=== PATIENT | female | born 1975 | race Two or more races ===

== ENCOUNTER 2019-07-18 16:54 | Emergency (ER) | payer OTHER ==
[~2019-07-18] VITALS: Ht 172.7 cm; Wt 59.0 kg
[2019-07-18] MEDS ORDERED: HYDROCODONE/APAP 5-325MG TABLET PO ONE (17:45)
[2019-07-18] MEDS ORDERED: HYDROCODONE/APAP 5-325MG TABLET ONE (17:49)
--- NOTE | 2019-07-18 18:11 | NUR ---
Patient discharged to home in stable condition. Written and verbal after care instructions given. Patient verbalizes understanding of instructions.
[2019-07-18 18:12] VITALS: BP 127/76
== END 2019-07-18 18:13 | disposition home or self-care (01) ==
LOC: ER 17:03
DX: L03.012 Cellulitis of left finger (principal); E11.9 Type 2 diabetes mellitus without complications; Z88.1 Allergy status to other antibiotic agents
CPT/HCPCS: A4663

== ENCOUNTER 2019-07-27 17:52 | Inpatient (IN) | payer OTHER ==
[~2019-07-27] VITALS: Ht 172.7 cm; Wt 59.1 kg
--- NOTE | 2019-07-27 18:33 | NUR ---
Dr Puri at the bedside for MSE.
[2019-07-27] MEDS ORDERED: VANCOMYCIN IV 200 ML ONE (19:28)
[2019-07-27] MEDS ORDERED: VANCOMYCIN IV 1,000 MG in IV DEXTROSE 5% 250 ML IV ONE (19:30)
--- NOTE | 2019-07-27 19:35 | NUR ---
Started 22 gauge peripheral iv in the left AC, well tolerated, no blood lost, no signs of infiltration.
[2019-07-27 19:48] LABS: BASOPHILS % (AUTO) 0.4 % (0.0-2.0); EOSINOPHILS # (AUTO) 0.1 K/uL (0.0-0.7); EOSINOPHILS % (AUTO) 1.7 % (0.0-7.0); HEMATOCRIT 26.2 % (31.2-41.9); HEMOGLOBIN 8.6 g/dL (10.9-14.3); LYMPHOCYTES # (AUTO) 1.4 K/uL (20.0-40.0); LYMPHOCYTES % (AUTO) 17.2 % (20.5-51.5); MEAN CORPUSCULAR HGB CONC 33 g/dL (32.3-35.6); MEAN CORPUSCULAR VOLUME 90.9 fL (75.5-95.3); MONOCYTES # (AUTO) 0.3 K/uL (2.0-10.0); MONOCYTES % (AUTO) 3.8 % (0.0-11.0); NEUTROPHILS # (AUTO) 6.2 K/uL (1.8-8.9); NEUTROPHILS % (AUTO) 76.9 % (38.5-71.5); PLATELET COUNT (AUTO) 263 K/uL (179-408); RED BLOOD CELL COUNT(AUTO) 2.89 MIL/uL (3.63-4.92); WHITE BLOOD COUNT (AUTO) 8.1 K/uL (3.8-11.8)
[2019-07-27 20:01] LABS: BILIRUBIN,DIRECT 0.1 mg/dL (0.0-0.2); BILIRUBIN,TOTAL 0.2 mg/dL (0.2-1.0); CREATININE 5.6 mg/dL (0.6-1.3); POTASSIUM 5.2 mmol/L (3.5-5.1); TOTAL PROTEIN, SERUM 6.6 g/dL (6.4-8.2)
--- NOTE | 2019-07-27 20:10 | NUR ---
Informed Dr. Puri of critical blood glucose level of 363. Informed pt manages diabetes with insulin.
[2019-07-27] MEDS ORDERED: ONDANSETRON 4 MG/2 ML VIAL IV PRN (21:15)
[2019-07-27] MEDS ORDERED: MAGNESIUM HYDROXIDE 30 ML LIQUID UDC PO PRN (21:15)
[2019-07-27] MEDS ORDERED: ACETAMINOPHEN 325 MG TABLET PO PRN (21:15)
[2019-07-27] MEDS ORDERED: DEXTROSE 50% 50 ML DISP.SYRIN IV PRN (21:15)
[2019-07-27] MEDS ORDERED: MORPHINE SULFATE 2 MG/1 ML DISP.SYRIN IV PRN (21:15)
[2019-07-27] MEDS ORDERED: Z GUARD REMEDY PASTE 57 GM TUBE TOP PRN (21:15)
--- NOTE | 2019-07-27 21:20 | NUR ---
Report given to Jazmin STYLES.
--- NOTE | 2019-07-27 21:30 | NUR ---
Transferred patient to room 305.
[2019-07-27 22:00] VITALS: BP 150/85
--- NOTE | 2019-07-27 22:00 | NUR ---
Received patient from ER. Dx: cellulitis of left 5th digit. Patient A/Ox4, ambulates with steady gait. No signs of acute distress noted. Vitals WNL. IV on the left AC is intact and patent. Noted swelling to left pinky, no drainage noted. Patient received Vanco in ER and has an order to start Rocephin. Patient oriented to room and unit, safety measures initiated. Bed is low and locked, call light within reach. Will continue to monitor.
[2019-07-27] MEDS: IV NS 1000 ML 1,000 ML IV PRN (22:09)
[2019-07-27] MEDS: BLOOD SUGAR DIAGNOSTIC 1 EACH STRIP VI SCH (22:28)
[2019-07-27] MEDS: INSULIN REGULAR, HUMAN 300 UNIT/3 ML VIAL SQ PRN (22:28)
--- NOTE | 2019-07-27 22:30 | NUR ---
Glucose in ER was 363, rechecked BS and was 180, gave coverage and food. Will continue to monitor.
[2019-07-27] MEDS ORDERED: CEFTRIAXONE 1 G VIAL ONE (22:33)
[2019-07-27] MEDS: CEFTRIAXONE 2 G in IV DEXTROSE 5% 100 ML IV SCH (22:42)
[2019-07-28] MEDS: HYDROCODONE/APAP 5-325MG TABLET PO PRN (05:02)
[2019-07-28 05:05] VITALS: BP 155/90
[2019-07-28] MEDS: BLOOD SUGAR DIAGNOSTIC 1 EACH STRIP VI SCH ×4 (06:46→20:39)
[2019-07-28 07:41] LABS: BILIRUBIN,TOTAL 0.1 mg/dL (0.2-1.0); CREATININE 5.2 mg/dL (0.6-1.3); MAGNESIUM 2.1 mg/dL (1.8-2.4); PHOSPHOROUS 4.3 mg/dL (2.5-4.9); POTASSIUM 4.1 mmol/L (3.5-5.1); TOTAL PROTEIN, SERUM 5.6 g/dL (6.4-8.2)
[2019-07-28 07:49] LABS: BASOPHILS % (AUTO) 0.7 % (0.0-2.0); EOSINOPHILS # (AUTO) 0.2 K/uL (0.0-0.7); EOSINOPHILS % (AUTO) 2.6 % (0.0-7.0); HEMATOCRIT 24.7 % (31.2-41.9); HEMOGLOBIN 8.2 g/dL (10.9-14.3); LYMPHOCYTES # (AUTO) 1.3 K/uL (20.0-40.0); MEAN CORPUSCULAR HGB CONC 33 g/dL (32.3-35.6); MEAN CORPUSCULAR VOLUME 90.2 fL (75.5-95.3); MONOCYTES # (AUTO) 0.3 K/uL (2.0-10.0); MONOCYTES % (AUTO) 5.7 % (0.0-11.0); NEUTROPHILS # (AUTO) 4.2 K/uL (1.8-8.9); PLATELET COUNT (AUTO) 239 K/uL (179-408); RED BLOOD CELL COUNT(AUTO) 2.74 MIL/uL (3.63-4.92); WHITE BLOOD COUNT (AUTO) 6.1 K/uL (3.8-11.8)
[2019-07-28 08:00] VITALS: BP 175/90
[2019-07-28 08:38] LABS: THYROID STIMULATING HORMONE 2.117 mIU/mL (0.358-3.740)
--- NOTE | 2019-07-28 09:14 | NUR ---
CLINICAL PHARMACY NOTE: VANCOMYCIN PHARMACY TO DOSE Subjective: To start vancomycin in this 43 y/o female for indication of empiric therapy (cellulitis) Objective: weight 59kg height 172cm BUN/SCR 43/5.2 (CKD, no HD yet) wbc 6.1 temp 98 1gm given in ER 07/26 @2000 Vanco random with am labs: 14 Assessment/Plan As pt not on HD yet, will dose per level for now for reduce renal function. Per today's random, will dose another 1gm vanco today at 1000. Next random due tomorrow with am labs. Will check and re-dose as needed. Will also check for HD status. Will follow
--- NOTE | 2019-07-28 09:25 | NUR ---
informed sharif that patient is hypertensive this morning. patient has history of HTN no bp meds ordered. sharif to come see the patient prior to med orders.
[2019-07-28] MEDS ORDERED: VANCOMYCIN IV 1,000 MG in IV DEXTROSE 5% 250 ML IV ONE (10:00)
--- NOTE | 2019-07-28 10:00 | NUR ---
sharif in the unit to see patient. refer to doctor jaja for renal function. doctor jaja in the unit at this time and will consult with the patient.
[2019-07-28 11:44] VITALS: BP 168/96
[2019-07-28 16:47] VITALS: BP 151/89
[2019-07-28 16:48] LABS: *BILIRUBIN,URIN NEGATIVE (NEGATIVE); *CLARITY,URINE CLEAR (CLEAR); *COLOR,URINE YELLOW (YELLOW); *KETONES,URINE NEGATIVE (NEGATIVE); *UROBILINOGEN,URINE 0.2 E.U./dl (NORMAL); LEUKOCYTE ESTERASE ,URINE NEGATIVE (NEGATIVE); NITRITE, URINE NEGATIVE (NEGATIVE); UGLUCOSE TRACE (NEGATIVE)
[2019-07-28 16:58] LABS: *BLOOD, URINE TRACE (NEGATIVE)
[2019-07-28 17:08] LABS: BACTERIA,URINE NONE SEEN /HPF (NONE SEEN); SQUAMOUS EPITHELIAL CELL,UR FEW /HPF (NONE SEEN); WBC,URINE 0-3 /HPF (0-3)
[2019-07-28 17:33] LABS: *CREATININE,URINE 44.6 mg/dL (30-125); *URINE TOTAL PROTEIN RANDOM 366.9 mg/dL (<150/24HR)
[2019-07-28] MEDS: IV NS 1000 ML 1,000 ML IV PRN (17:52)
--- NOTE | 2019-07-28 20:00 | NUR ---
RECEIVED PATIENT AWAKE IN BED. A/O X4. WATCHING TV IN BED. DENIES PAIN OR DISCOMFORT IN LEFT PINKY FINGER. SWELLING NOTED. IVF INFUSING WELL TO LEFT AC #22 GAUGE. NO RESP. DISTRESS NOTED. VSS. CALL LIGHT IN REACH. ALL NEEDS ATTENDED. WILL CONTINUE TO MONITOR.
[2019-07-28 20:22] VITALS: BP 154/80
[2019-07-28] MEDS: INSULIN REGULAR, HUMAN 300 UNIT/3 ML VIAL SQ PRN (20:41)
[2019-07-28] MEDS: CEFTRIAXONE 2 G in IV DEXTROSE 5% 100 ML IV SCH (20:55)
[2019-07-29] MEDS: IV NS 1000 ML 1,000 ML IV PRN ×2 (00:29→10:49)
[2019-07-29] MEDS: HYDROCODONE/APAP 5-325MG TABLET PO PRN (04:03)
[2019-07-29 06:13] LABS: BASOPHILS % (AUTO) 0.7 % (0.0-2.0); EOSINOPHILS # (AUTO) 0.3 K/uL (0.0-0.7); EOSINOPHILS % (AUTO) 3.9 % (0.0-7.0); HEMATOCRIT 24.9 % (31.2-41.9); HEMOGLOBIN 8.2 g/dL (10.9-14.3); LYMPHOCYTES # (AUTO) 1.7 K/uL (20.0-40.0); LYMPHOCYTES % (AUTO) 22.3 % (20.5-51.5); MEAN CORPUSCULAR HEMOGLOBIN 29.6 uug (24.7-32.8); MEAN CORPUSCULAR HGB CONC 33 g/dL (32.3-35.6); MEAN CORPUSCULAR VOLUME 89.6 fL (75.5-95.3); MONOCYTES # (AUTO) 0.3 K/uL (2.0-10.0); MONOCYTES % (AUTO) 4.1 % (0.0-11.0); NEUTROPHILS # (AUTO) 5.1 K/uL (1.8-8.9); PLATELET COUNT (AUTO) 240 K/uL (179-408); RED BLOOD CELL COUNT(AUTO) 2.78 MIL/uL (3.63-4.92); WHITE BLOOD COUNT (AUTO) 7.5 K/uL (3.8-11.8)
--- NOTE | 2019-07-29 06:31 | NUR ---
PATIENT RESTING IN BED. SLEPT AT SMALL INTERVALS THROUGHOUT THE NIGHT. NO C/O PAIN AT THIS TIME. PREVIOUSLY GIVEN NORCO FOR PAIN AT 0405. EFFECTIVE, VSS. IVF INFUSING WELL TO RIGHT FA #22. CALL LIGHT IN REACH. ALL NEEDS ATTENDED. WILL CONTINUE TO MONITOR AND ASSESS.
[2019-07-29 06:35] LABS: BILIRUBIN,TOTAL 0.1 mg/dL (0.2-1.0); MAGNESIUM 1.9 mg/dL (1.8-2.4); PHOSPHOROUS 4.4 mg/dL (2.5-4.9); POTASSIUM 4.3 mmol/L (3.5-5.1); TOTAL PROTEIN, SERUM 5.6 g/dL (6.4-8.2); VANCOMYCIN,RANDOM 23.2 ug/mL (18.0-26.0)
[2019-07-29] MEDS: BLOOD SUGAR DIAGNOSTIC 1 EACH STRIP VI SCH ×4 (06:38→20:32)
[2019-07-29 06:49] VITALS: BP 155/86
--- NOTE | 2019-07-29 07:36 | NUR ---
CLINICAL PHARMACY NOTE: VANCOMYCIN PHARMACY TO DOSE Subjective: To continue vancomycin in this 43 y/o female for indication of empiric therapy (cellulitis) Objective: weight 59kg height 172cm BUN/SCR 47/5.0 (CKD, no HD yet) wbc 7.5 temp 98.1 Vanco random with am labs on 3: 14 Vanco random with am labs on 07/28: 23.2 Assessment/Plan As pt not on HD yet, will dose per level for now for reduce renal function. Per today's random of 23.2 mcg/ml, no dose will be due today. Next random due tomorrow with am labs. Will check and re-dose as needed. Will also check for HD status. Will follow
[2019-07-29] MEDS: INSULIN REGULAR, HUMAN 300 UNIT/3 ML VIAL SQ PRN ×4 (08:52→20:40)
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
[2019-07-29 11:23] VITALS: BP 149/79
[2019-07-29 15:16] VITALS: BP 142/76
--- NOTE | 2019-07-29 18:28 | NUR ---
Patient calm and comfortable through out shift with no signs of distress; patient medication compliant ; patient with stable vital signs and report given to oncoming nurse.
--- NOTE | 2019-07-29 19:44 | NUR ---
Received patient awake and alert. Patient shows no signs or symptoms of distress at this time. IV patent running NS @ 75cc/hr. Bed set to lowest position. Call light within reach. Will continue to monitor patient.
[2019-07-29] MEDS: CEFTRIAXONE 2 G in IV DEXTROSE 5% 100 ML IV SCH (20:26)
[2019-07-29 21:04] VITALS: BP 179/85
[2019-07-29] MEDS ORDERED: CLONIDINE HCL 0.2 MG TABLET PO ONE (21:15)
[2019-07-29] MEDS ORDERED: CLONIDINE HCL 0.1 MG TABLET PO PRN (21:15)
--- NOTE | 2019-07-29 21:45 | NUR ---
2100 - Blood pressure is 179/85 and pulse 69. Patient denies having any chest pain, headache or shortness of breath at this time. Patient does not have any routine or PRN meds for blood pressure at this time. RANJEET Connelly notified of patient blood pressure. Received orders. 2130 - Catapres given as per MD order. Will continue to monitor patient.
--- NOTE | 2019-07-29 22:45 | NUR ---
Blood pressure rechecked and is 150/83 and pulse is 89. No further orders. Patient reports feeling better. Will continue to monitor patient.
[2019-07-29 22:47] VITALS: BP 150/83
[2019-07-30] MEDS: IV NS 1000 ML 1,000 ML IV PRN ×2 (01:09→16:08)
[2019-07-30 05:04] VITALS: BP 152/81
[2019-07-30 06:00] LABS: BASOPHILS % (AUTO) 0.5 % (0.0-2.0); EOSINOPHILS # (AUTO) 0.3 K/uL (0.0-0.7); EOSINOPHILS % (AUTO) 3.7 % (0.0-7.0); HEMATOCRIT 24.6 % (31.2-41.9); LYMPHOCYTES # (AUTO) 1.5 K/uL (20.0-40.0); LYMPHOCYTES % (AUTO) 21.1 % (20.5-51.5); MEAN CORPUSCULAR HEMOGLOBIN 29.5 uug (24.7-32.8); MEAN CORPUSCULAR HGB CONC 33 g/dL (32.3-35.6); MEAN CORPUSCULAR VOLUME 90.6 fL (75.5-95.3); MONOCYTES # (AUTO) 0.4 K/uL (2.0-10.0); MONOCYTES % (AUTO) 5.3 % (0.0-11.0); NEUTROPHILS # (AUTO) 4.9 K/uL (1.8-8.9); NEUTROPHILS % (AUTO) 69.4 % (38.5-71.5); PLATELET COUNT (AUTO) 234 K/uL (179-408); RED BLOOD CELL COUNT(AUTO) 2.72 MIL/uL (3.63-4.92)
[2019-07-30 06:11] LABS: CREATININE 4.9 mg/dL (0.6-1.3); POTASSIUM 4.6 mmol/L (3.5-5.1); VANCOMYCIN,RANDOM 16.6 ug/mL (18.0-26.0)
[2019-07-30] MEDS: BLOOD SUGAR DIAGNOSTIC 1 EACH STRIP VI SCH ×4 (06:34→20:26)
--- NOTE | 2019-07-30 07:18 | NUR ---
Patient shows no signs or symptoms of distress at this time. Call light within reach. Bed set to lowest position. Endorsed patient to AM nurse in stable condition.
[2019-07-30] MEDS: INSULIN REGULAR, HUMAN 300 UNIT/3 ML VIAL SQ PRN ×4 (07:51→20:30)
--- NOTE | 2019-07-30 07:58 | NUR ---
CLINICAL PHARMACY NOTE: VANCOMYCIN PHARMACY TO DOSE Subjective: To continue vancomycin in this 43 y/o female for indication of empiric therapy (cellulitis) Objective: weight 59kg height 172cm BUN/SCR 47/4.9 (CKD, no HD yet) wbc 7 temp 97.8 Vanco random with am labs on 07/27: 14 Vanco random with am labs on 07/28: 23.2 Vanco random with am labs on 07/29: 16.6 Assessment/Plan As pt not on HD yet, will dose per level for now for reduce renal function. Per today's random of 16.6 mcg/ml, will give vanco 1gm IVPB x1 today at 0800. Next random due on 07/31 with am labs. Will check and re-dose as needed. Will also check for HD status. Will follow
[2019-07-30] MEDS ORDERED: VANCOMYCIN IV 1,000 MG in IV DEXTROSE 5% 250 ML IV ONE (08:00)
[2019-07-30 09:09] LABS: A/G RATIO 0.9 (0.7-1.7); ALBUMIN 2.4 g/dL (2.9-4.4); ALPHA-1-GLOBULIN 0.2 g/dL (0.0-0.4); ALPHA-2-GLOBULIN 0.8 g/dL (0.4-1.0); BETA GLOBULIN 0.8 g/dL (0.7-1.3); GAMMA GLOBULIN 0.9 g/dL (0.4-1.8); GLOBULIN, TOTAL 2.7 g/dL (2.2-3.9); M-SPIKE Not Observed g/dL (Not Observed)
[2019-07-30 11:28] VITALS: BP 143/77
[2019-07-30 16:25] VITALS: BP 146/75
--- NOTE | 2019-07-30 19:30 | NUR ---
Received patient awake and alert. Patient shows no signs or symptoms of distress at this time. Patient denies having any pain at this time. Call light within reach. Bed set to lowest position. Will continue to monitor patient.
[2019-07-30 20:00] VITALS: BP 138/77
[2019-07-30] MEDS: CEFTRIAXONE 2 G in IV DEXTROSE 5% 100 ML IV SCH (20:21)
[2019-07-31 04:00] VITALS: BP 172/91
[2019-07-31 05:39] LABS: POTASSIUM 4.7 mmol/L (3.5-5.1)
[2019-07-31 06:04] LABS: BASOPHILS # (AUTO) 0.1 K/uL (0.0-8.0); BASOPHILS % (AUTO) 0.7 % (0.0-2.0); EOSINOPHILS # (AUTO) 0.3 K/uL (0.0-0.7); EOSINOPHILS % (AUTO) 4.1 % (0.0-7.0); HEMATOCRIT 23.5 % (31.2-41.9); HEMOGLOBIN 7.8 g/dL (10.9-14.3); LYMPHOCYTES # (AUTO) 1.4 K/uL (20.0-40.0); LYMPHOCYTES % (AUTO) 19.4 % (20.5-51.5); MEAN CORPUSCULAR HEMOGLOBIN 30.1 uug (24.7-32.8); MEAN CORPUSCULAR HGB CONC 33 g/dL (32.3-35.6); MEAN CORPUSCULAR VOLUME 90.9 fL (75.5-95.3); MONOCYTES # (AUTO) 0.4 K/uL (2.0-10.0); MONOCYTES % (AUTO) 5.7 % (0.0-11.0); NEUTROPHILS # (AUTO) 5.1 K/uL (1.8-8.9); NEUTROPHILS % (AUTO) 70.1 % (38.5-71.5); PLATELET COUNT (AUTO) 222 K/uL (179-408); RED BLOOD CELL COUNT(AUTO) 2.59 MIL/uL (3.63-4.92); WHITE BLOOD COUNT (AUTO) 7.4 K/uL (3.8-11.8)
--- NOTE | 2019-07-31 06:18 | NUR ---
PRN Catapres given for BP 172/91, BP is now 150/79.
[2019-07-31] MEDS: BLOOD SUGAR DIAGNOSTIC 1 EACH STRIP VI SCH ×2 (06:27→12:21)
[2019-07-31] MEDS: IV NS 1000 ML 1,000 ML IV PRN (06:58)
--- NOTE | 2019-07-31 07:00 | NUR ---
TOLERATING IV ANTIBIOTIC. FINGER STILL SWOLLEN BUT PATIENT SAID ABLE TO BEND A LITTLE BIT. AFEBRILE
[2019-07-31] MEDS: INSULIN REGULAR, HUMAN 300 UNIT/3 ML VIAL SQ PRN ×2 (08:12→12:23)
--- NOTE | 2019-07-31 08:13 | NUR ---
seen by hospitalist for follow-up see notes
--- NOTE | 2019-07-31 08:54 | NUR ---
CLINICAL PHARMACY NOTE: VANCOMYCIN PHARMACY TO DOSE Subjective: To continue vancomycin in this 43 y/o female for indication of empiric therapy (cellulitis) Objective: weight 59kg height 172cm BUN/SCR 58/5.0 (CKD, no HD yet) wbc 7.4 temp 98.3 Vanco random with am labs on 07/27: 14 Vanco random with am labs on 07/28: 23.2 Vanco random with am labs on 07/29: 16.6 Assessment/Plan As pt not on HD yet, will dose per level for now for reduce renal function. Patient recieved vanco 1gm IVPB x1 yetserday at 0800. No dose shall be due today. Next random due on 07/31 with am labs. Will check and re-dose as needed. Will also check for HD status. Will follow
[2019-07-31 11:31] VITALS: BP 129/79
--- NOTE | 2019-07-31 12:58 | NUR ---
discharged home stable pick-up by family with RX and follow-up instruction with pcp
[2019-07-31 13:12] LABS: COMPLEMENT, C3 SERUM 75 mg/dL (82-167); COMPLEMENT, C4 SERUM 22 mg/dL (14-44)
[2019-08-01 08:07] LABS: HEPATITIS B SURFACE AB Non Reactive (.); HEPATITIS B SURFACE AG Negative (Negative)
[2019-08-01 10:19] LABS: CALCITRIOL VIT D,1,25 DIHYDROX 9.1 pg/mL (19.9-79.3)
== END 2019-07-31 13:14 | disposition home or self-care (01) | DRG 383 ==
LOC: ER 17:55 → MEDSURG3 21:16
PROVIDERS: ADMIT Hospitalist; ATTEND Nurse Practitioner Acute Care
DX: L03.012 Cellulitis of left finger (principal); N17.0 Acute kidney failure with tubular necrosis; E43 Unspecified severe protein-calorie malnutrition; E11.65 Type 2 diabetes mellitus with hyperglycemia; E11.21 Type 2 diabetes mellitus with diabetic nephropathy; S61.217S Laceration without foreign body of left little finger without damage to nail, sequela; D63.8 Anemia in other chronic diseases classified elsewhere; E11.22 Type 2 diabetes mellitus with diabetic chronic kidney disease; E87.1 Hypo-osmolality and hyponatremia; W45.8XXS Other foreign body or object entering through skin, sequela; E87.5 Hyperkalemia; N18.3 Chronic kidney disease, stage 3 (moderate); E88.09 Other disorders of plasma-protein metabolism, not elsewhere classified; Z68.1 Body mass index [BMI] 19.9 or less, adult; Z79.4 Long term (current) use of insulin
CPT/HCPCS: 36415; 73130; 82652; 83735; 83970; 84100; 84155; 84156; 84165; 84300; 84443; 85025; 85651; 85730; 86038; 86160; 86706; 86803; 87040; 87340; A4663; G0378; J0696; J1815; J3370; J3490; J7030; J7060